=== PATIENT | male | born 1955 | race Caucasian/White ===

== ENCOUNTER → 2017-10-20 | Outpatient (CLI) | payer OTHER ==
--- NOTE | 2017-10-21 10:30 | XCELERA REPORT ---
[address] [address] Lower Extremity Arterial Evaluation Name: BRAD SARMIENTO Age: 62 yrs Gender: Male : 1955 Patient Status: Outpatient Patient Location: Study Date: 10/20/2017 12:50 PM Procedure: A color flow and duplex scan of the lower extremity arteries was performed bilaterally with velocity and waveform anaylsis. Ankle brachial indicies performed. Reason For Study: PVD Ordering Physician: ROBERT TERRELL Performed By: Ynes Diez Measurements and Calculations Right Left BULK SUGAR HANDLER PSV 23.8 34.6 cm/sec Prox PFA PSV -64.8 108.5 cm/sec Prox SFA PSV 89.9 -85.9 cm/sec Mid SFA PSV -140.8 -121.3 cm/sec Dist SFA PSV -99.2 -98.2 cm/sec Prox Pop A PSV 113.4 97.0 cm/sec Dist KENZIE PSV 77.0 61.5 cm/sec Dist CONVEYOR TENDER PSV 78.2 70.5 cm/sec Laci Pedis PSV 64.6 51.3 cm/sec Right Side Arterial Evaluation Normal velocity and triphasic waveforms noted from the Common Femoral artery to the Popliteal arery. BIphasic in the infregeniculate vessels. 0-19% stenosis at the infrageniculate vessels. Ankle Brachial index is 1.02. Left Side Arterial Evaluation Normal velocity and triphasic waveforms noted in the Common Femoral artery.Biphaisc to the infregeniculate vessels. 0-19% stenosis at the Femoral artery. Ankle Brachial index is 0.9.. Interpretation Summary Mild hemodynamically significant lesions in the bilateral lower extremities, on duplex imaging, at rest. History of vascular surgery in the Common Femoral suggests a very good result from intervention persists. : ROBERT TERRELL > Robert Terrell
== END ==
LOC: SP 12:38
PROVIDERS: ATTEND Surgery
DX: I73.9 Peripheral vascular disease, unspecified (principal)
CPT/HCPCS: 93925